=== PATIENT | female | born 1995 ===

== ENCOUNTER 2018-06-04 01:42 | Emergency (ER) | payer SELFPAY ==
[2018-06-04 01:48] VITALS: BMI 29.2
[2018-06-04 01:54] VITALS: PULSE 80; RESP 20
[2018-06-04 01:58] VITALS: BP 117/78
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
--- NOTE | 2018-06-04 03:36 | ED PDOC ---
Arrival/HPI - General Chief Complaint: Chest Pain Time Seen by Provider: 06/04/18 02:05 Historian: Patient Past Medical History - Psychiatric Hx Anxiety: Yes Hx Substance Use: No - Surgical History Hx Cholecystectomy: Yes - Anesthesia Hx Anesthesia: Yes Hx Anesthesia Reactions: No Family/Social History Smoking Status: Light Smoker < 10 Cigarettes Daily Hx Alcohol Use: No Hx Substance Use: No Allergies/Home Meds Allergies/Adverse Reactions: Allergies No Known Allergies Allergy (Verified 06/04/18 01:51) Home Medications: Home Meds Medication Instructions Recorded Confirmed No Known Home Med 06/04/18 06/04/18 Physical Exam Vital Signs Pulse Resp BP Pulse Ox 06/04/18 01:53 80 20 117/78 98 Disposition/Present on Arrival - Present on Arrival History of DVT/PE: No History of Uncontrolled Diabetes: No Urinary Catheter: No History of Decub. Ulcer: No History Surgical Site Infection Following: None - Disposition Forms: [facility] ([place]ian), WORK NOTE
[2018-06-04 03:40] VITALS: O2SAT 99
--- NOTE | 2018-06-04 07:21 | RAD ---
Date of service: 06/04/2018 HISTORY: chest pain COMPARISON: No prior. TECHNIQUE: Chest PA and lateral FINDINGS: LUNGS: No active pulmonary disease. PLEURA: No significant pleural effusion identified. No pneumothorax apparent. CARDIOVASCULAR: Normal. OSSEOUS STRUCTURES: No significant abnormalities. VISUALIZED UPPER ABDOMEN: Normal. OTHER FINDINGS: None. IMPRESSION: No active disease.
--- NOTE | 2018-06-04 09:35 | CARD ---
APPROVED REPORT Date of service: 06/04/2018 EKG Measurement Heart [id number] <Conclusion> Normal sinus rhythm Normal ECG
== END 2018-06-04 03:40 | disposition home or self-care (01) ==
LOC: ED 01:42 → MERGE 01:42 → ED 03:40
DX: M94.0 Chondrocostal junction syndrome [Tietze] (principal); F17.210 Nicotine dependence, cigarettes, uncomplicated
CPT/HCPCS: 71046; 93005; 96372; 99283; J1885